=== PATIENT | male | born 1970 | race African-American/Black ===

== ENCOUNTER 2019-10-29 13:34 | Emergency (ER) | payer MEDICAID, OTHER ==
[~2019-10-29] VITALS: Ht 177.8 cm; Wt 113.6 kg
[~2019-10-29 13:34] MED LIST: HYDR-3965 PO; TRAM50TA4 PO
[2019-10-29] MEDS ORDERED: LIDOCAINE 5% TRANSDERMAL PATCH TD ONE (17:00)
[2019-10-29] MEDS ORDERED: CYCLOBENZAPRINE HCL 10 MG TABLET PO ONE (17:00)
[2019-10-29] MEDS ORDERED: KETOROLAC TROMETHAMINE 30 MG/ML VIAL IM ONE (17:00)
[2019-10-29 20:00] VITALS: BP 143/96
== END 2019-10-29 20:00 | disposition home or self-care (01) ==
LOC: EMS 13:35
DX: M54.5 Low back pain (principal)
CPT/HCPCS: 72100; 96372; 99283; J1885

== ENCOUNTER 2020-03-04 19:14 | Emergency (ER) | payer MEDICAID ==
[~2020-03-04] VITALS: Ht 198.1 cm; Wt 140.9 kg
[2020-03-04] MEDS ORDERED: CYCL10 PO (19:36)
[2020-03-04] MEDS ORDERED: LISI-661 PO (19:36)
[2020-03-04] MEDS ORDERED: AMLO5TAB9 PO (19:36)
[2020-03-04] MEDS ORDERED: SODIUM CHLORIDE 0.9% 1,000 ML IV ONE (20:15)
[2020-03-04 21:10] LABS: ANION GAP 7 mmol/L (8-16); CALCIUM, TOTAL 8.3 mg/dL (8.8-10.5); CARBON DIOXIDE 30 mmol/L (22-29); CHLORIDE 100 mmol/L (98-107); CREATININE 1.36 mg/dL (0.60-1.30); GLOMERULAR FILTR. RATE CALC > 60 mL/min (>60); GLUCOSE,RANDOM 100 mg/dL (70-110); POTASSIUM 3.7 mmol/L (3.5-5.1); SODIUM SERUM 137 mmol/L (136-145); UREA NITROGEN, BLOOD 11 mg/dL (7-18)
[2020-03-04 21:12] LABS: BASOPHILS % (AUTO) 0.3 % (0.0-2.0); EOSINOPHILS % (AUTO) 0.1 % (1.0-6.0); HEMATOCRIT 45.1 % (41-53); LYMPHOCYTES % (AUTO) 27.5 % (22.0-44.0); MEAN CORPUSCULAR HEMOGLOBIN 31.1 pg (26.0-34.0); MEAN CORPUSCULAR HGB CONC 33.2 G/dL (31.0-37.0); MEAN CORPUSCULAR VOLUME 94 fL (80-100); MONOCYTES # (AUTO) 0.6 K/uL (0.1-1.0); MONOCYTES % (AUTO) 17.9 % (2.0-9.0); NEUTROPHILS # (AUTO) 1.9 K/uL (1.8-7.7); NEUTROPHILS % (AUTO) 54.2 % (40.0-70.0); PLATELET COUNT (AUTO) 199 K/uL (150-450); RED BLOOD CELL COUNT(AUTO) 4.81 MIL/uL (4.50-5.90); RED CELL DISTRIBUTION WIDTH 13.3 % (11.5-14.5)
[2020-03-04 21:26] LABS: ALANINE AMINOTRANSFERASE 30 U/L (12-78); ALBUMIN 3.7 g/dL (3.4-5.0); ALKALINE PHOSPHATASE 99 U/L (46-116); ASPARTATE AMINOTRANSFERASE 32 U/L (15-37); BILIRUBIN,TOTAL 0.3 mg/dL (0.1-1.0); THYROID STIMULATING HORMONE 2.13 uIU/mL (0.36-3.74); TOTAL PROTEIN, SERUM 7.7 g/dL (6.4-8.2)
[2020-03-04 22:29] LABS: APPEARANCE,URINE CLEAR (CLEAR); BILIRUBIN,URINE NEGATIVE (NEGATIVE); GLUCOSE, URINE (UA) NEGATIVE (NEGATIVE); KETONES,URINE TRACE mg/dL (NEGATIVE); LEUKOCYTE ESTERASE ,URINE NEGATIVE (NEGATIVE); NITRATE,URINE NEGATIVE (NEGATIVE); OCCULT BLOOD,URINE NEGATIVE (NEGATIVE); PROTEIN,URINE TRACE (NEGATIVE)
[2020-03-04 22:34] LABS: AMPHET/METH SCREEN,URINE NEGATIVE (NEGATIVE); BARBITURATE SCREEN, URINE NEGATIVE (NEGATIVE); BENZODIAZEPINES SCREEN,URINE NEGATIVE (NEGATIVE); CANNABINOID SCREEN,URINE NEGATIVE (NEGATIVE); COCAINE SCREEN,URINE NEGATIVE (NEGATIVE); METHADONE SCREEN, URINE NEGATIVE (NEGATIVE); OPIATE SCREEN,URINE NEGATIVE (NEGATIVE)
[2020-03-04 22:36] LABS: PHENCYCLIDINE SCREEN,URINE NEGATIVE (NEGATIVE)
[2020-03-04 22:51] VITALS: BP 155/88
== END 2020-03-04 23:16 | disposition home or self-care (01) ==
LOC: EMS 19:14
DX: G47.00 Insomnia, unspecified (principal); F41.9 Anxiety disorder, unspecified
CPT/HCPCS: 36415; 71045; 80053; 80307; 81003; 84439; 84443; 85025; 93005; 99285; G0480